=== PATIENT | female | born 1980 ===

== ENCOUNTER 2017-08-24 08:07 | Emergency (ER) | payer SELFPAY ==
[2017-08-24 08:38] VITALS: RESP 18
--- NOTE | 2017-08-24 09:19 | ED PDOC ---
HPI: Female Pain Time Seen by Provider: 08/24/17 08:53 Chief Complaint (Nursing): Female Genitourinary Chief Complaint (Provider): vaginal abscess History Per: Patient History/Exam Limitations: no limitations Onset/Duration Of Symptoms: Days (7), Worse Since (yesterday) Current Symptoms Are (Timing): Better (today) Quality Of Discomfort: Sharp Associated Symptoms: Fever, Nausea, Diarrhea Additional Complaint(s): 36 yo ,f, no significant PMhx presents to ED c/o vaginal swelling like abscess started 7 days ago associated with vaginal pain for the last 2 days, worse since last night. She also reports bloddy diarrhea 3-4 /day for the last 2 day associated with 2 non bloddy vomiting yesterday, nausea and subjective fever last night. She denies dysuria,vaginal discharge, vaginal bleeding, cough, SOB , chest pain. Patient while in ED today reports that when she went to take urine sample, noticed that abscess started to drain. Reports LMP 07/04/17. Amenorrhea 7 weeks. Denies symptoms. Reports test at home 3 days ago negative. Reports similar genital abscess 1year ago. Reports started taking Abx Azithromycin yesterday PMD: Dr Matthews Past Medical History Vital Signs: Last Vital Signs Temp 98.5 F 08/24/17 08:32 Pulse 92 H 08/24/17 08:32 Resp 18 08/24/17 08:32 BP 129/92 H 08/24/17 08:32 Pulse Ox 100 08/24/17 08:32 - Surgical History Other surgeries: Lap Band - Family History Family History: States: No Known Family Hx - Social History Current smoker - smoking cessation education provided: Yes (occs 1-2 cig) Alcohol: Occasional Drugs: Denies - Allergies Allergies/Adverse Reactions: Allergies Allergy/AdvReac Type Severity Reaction Status Date / Time No Known Allergies Allergy Verified 02/10/16 10:45 Review of Systems Gastrointestinal: Positive for: Vomiting, Diarrhea Genitourinary Female: Positive for: Other (vaginal swelling, vaginal pain). Negative for: Hematuria Physical Exam - Physical Exam Appears: Positive for: No Acute Distress Head Exam: Positive for: ATRAUMATIC, NORMOCEPHALIC Skin: Positive for: Normal Color Eye Exam: Positive for: Normal appearance Neck: Positive for: Normal Cardiovascular/Chest: Positive for: Regular Rate, Rhythm. Negative for: Murmur Respiratory: Positive for: Normal Breath Sounds. Negative for: Crackles, Rales , Rhonchi, Wheezing Gastrointestinal/Abdominal: Positive for: Soft, Tenderness (suprapubic TD). Negative for: Distended, Guarding, Rebound Pelvic Exam: Positive for: Mass (Right superior major labia) Back: Positive for: Normal Inspection, R CVA Tenderness Extremity: Positive for: Normal ROM. Negative for: Tenderness, Pedal Edema Neurologic/Psych: Positive for: Alert, Oriented - Laboratory Results Result Diagrams: 08/24/17 11:10 08/24/17 11:10 - ECG O2 Sat by Pulse Oximetry: 100 Medical Decision Making Medical Decision Makin:40 initial impression Vulva (labia majora ) Abscess Differential Bartholin cyst, Bartholin abscess, Vulva tumor. Plan CBC, CMP , Urine dip, Urine test (neg) Wound cx, Hemocult (sent to lab) Iv fluids NS 1l, toradol 30 mg IV 11:20 AM Patient reports feeling better. Pain controlled.Reports last diarrhea was last night wound cx sample taken. Labs reviewed CBC showed leukocytosis , UA: leukocyturia, leukocyte sterase positive. Pending hemoccult Patient cleared to be discharge with Abx Bactrim to cover vulvar abscess and UTI and f/u [employer]. Disposition - Clinical Impression Clinical Impression: Abscess of labia majora, UTI (urinary tract infection) - Disposition Disposition Time: 13:55 Condition: FAIR Forms: [facility] ([facility])
[2017-08-24] MEDS ORDERED: Sodium Chloride 0.9% 1,000 ML IV STA (10:05)
[2017-08-24 11:27] LABS: SQUAMOUS EPITHIAL 1 /hpf (0-5); URINE BACTERIA RARE (<OCC); URINE BILIRUBIN NEGATIVE (NEGATIVE); URINE BLOOD NEGATIVE (NEGATIVE); URINE CLARITY SLIGHTY-CLOUDY (Clear); URINE COLOR YELLOW (YELLOW); URINE GLUCOSE (UA) NEG (Normal); URINE LEUKOCYTE ESTERASE MOD Leu/uL (Negative); URINE PROTEIN NEGATIVE (NEGATIVE); URINE UROBILINOGEN 0.2-1.0 mg/dL (0.2-1.0)
[2017-08-24 11:31] LABS: BASO # 0.1 K/uL (0.0-0.2); BASO % 0.3 % (0.0-2.0); EOS % 0.2 % (0.0-4.0); HEMOGLOBIN 11.7 g/dL (12.0-16.0); LYMPH % 10.7 % (20.0-40.0); MEAN CELL VOLUME 82.1 fl (81.0-99.0); MEAN CORPUSCULAR HEMOGLOBIN 26.2 pg (27.0-31.0); MEAN CORPUSCULAR HGB CONC 31.9 g/dL (33.0-37.0); MEAN PLATELET VOLUME 9.6 fl (7.2-11.7); MONO # 0.8 K/uL (0.0-0.8); MONO % 4.4 % (0.0-10.0); NEUT % 84.4 % (50.0-75.0); NRBC % 0.1 % (0.0-0.0); RBC 4.45 Mil/uL (3.80-5.20); RED CELL DISTRIBUTION WIDTH 15.4 % (11.5-14.5); WHITE BLOOD COUNT 18.9 K/uL (4.8-10.8)
[2017-08-24 11:37] LABS: ALB/GLOB RATIO 1.2 (1.0-2.1); ALBUMIN 3.8 g/dL (3.5-5.0); ALT/SGPT 26 U/L (9-52); AST/SGOT 20 U/L (14-36); BLOOD UREA NITROGEN 7 mg/dl (7-17); CALCIUM 8.9 mg/dL (8.4-10.2); GFR AFRICAN-AMERICAN > 60; GFR NON-AFRICAN AMERICAN > 60
[2017-08-24 14:50] VITALS: BP 121/70; PULSE 77; TEMP 98; O2SAT 99
== END 2017-08-24 14:50 | disposition home or self-care (01) ==
LOC: H.ER 08:07
DX: N76.4 Abscess of vulva (principal); N39.0 Urinary tract infection, site not specified; F17.200 Nicotine dependence, unspecified, uncomplicated
CPT/HCPCS: 80053; 81003; 81025; 85025; 87070; 87086; 96374; 99283; G0328; J1885; J7040